=== PATIENT | male | born 1995 ===

== ENCOUNTER 2023-10-10 08:16 | Emergency (ER) | payer SELFPAY ==
[~2023-10-10] VITALS: Ht 175.3 cm; Wt 84.0 kg
[2023-10-10 08:20] VITALS: BP 103/56; PULSE 88; RESP 28; TEMP 98; O2SAT 99
[2023-10-10] MEDS: LIDOCAINE HCL/EPINEPHRINE 1%-EPI 1:100,000 20 ML VIAL INFIL ONE (08:45)
[2023-10-10] MEDS ORDERED: CEPH500C2 MT (08:52)
[2023-10-10] MEDS: TETANUS, DIPHTHERIA, PERTUSSIS VAC/PF 0.5ML (>10YR OLD) IM ONE (09:00)
== END 2023-10-10 09:05 | disposition home or self-care (01) ==
LOC: ER 08:16
DX: S61.411A Laceration without foreign body of right hand, initial encounter (principal); X58.XXXA Exposure to other specified factors, initial encounter; Y93.89 Activity, other specified; Y92.89 Other specified places as the place of occurrence of the external cause; Y99.8 Other external cause status
CPT/HCPCS: 90715; 90471; 99283; Z7610